=== PATIENT | female | born 1975 | race African-American/Black ===

== ENCOUNTER 2017-01-24 19:54 | Emergency (ER) | payer OTHER ==
[~2017-01-24] VITALS: Ht 162.6 cm; Wt 72.7 kg
[~2017-01-24 19:54] MED LIST: CARB200T6 PO; GABA-533 PO
[2017-01-24 20:04] VITALS: BP 130/90
[2017-01-24 20:31] LABS: BASOPHILS % (AUTO) 0.5 % (0.0-2.0); EOSINOPHILS % (AUTO) 2.8 % (1.0-6.0); HEMATOCRIT 38.4 % (36-46); HEMOGLOBIN 12.8 g/dL (12.0-16.0); LYMPHOCYTES # (AUTO) 2.3 K/uL (1.0-4.8); LYMPHOCYTES % (AUTO) 40.9 % (22.0-44.0); MEAN CORPUSCULAR HEMOGLOBIN 30.3 pg (26.0-34.0); MEAN CORPUSCULAR HGB CONC 33.3 G/dL (31.0-37.0); MEAN CORPUSCULAR VOLUME 91 fL (80-100); MONOCYTES # (AUTO) 0.5 K/uL (0.1-1.0); MONOCYTES % (AUTO) 9.4 % (2.0-9.0); NEUTROPHILS # (AUTO) 2.6 K/uL (1.8-7.7); NEUTROPHILS % (AUTO) 46.4 % (40.0-70.0); PLATELET COUNT (AUTO) 285 K/uL (150-450); RED BLOOD CELL COUNT(AUTO) 4.23 MIL/uL (4.00-5.20); RED CELL DISTRIBUTION WIDTH 14.3 % (11.5-14.5); WHITE BLOOD COUNT (AUTO) 5.7 K/uL (4.5-11.0)
[2017-01-24 21:09] LABS: APPEARANCE,URINE CLOUDY (CLEAR); GLUCOSE, URINE (UA) NEGATIVE (NEGATIVE); KETONES,URINE NEGATIVE (NEGATIVE); LEUKOCYTE ESTERASE ,URINE LARGE (NEGATIVE); OCCULT BLOOD,URINE NEGATIVE (NEGATIVE); PROTEIN,URINE NEGATIVE (NEGATIVE)
[2017-01-24 21:13] LABS: ADD UA MICROSCOPIC YES
[2017-01-24 21:23] LABS: RBC,URINE None Seen /HPF (0-2); SQUAMOUS EPITHELIAL CELL,UR Few /LPF (None Seen)
== END 2017-01-24 21:52 | disposition home or self-care (01) ==
LOC: EMS 20:00
DX: N39.0 Urinary tract infection, site not specified (principal)
CPT/HCPCS: 87086; 99284

== ENCOUNTER 2019-01-24 16:13 | Emergency (ER) | payer OTHER ==
[~2019-01-24] VITALS: Ht 162.6 cm; Wt 80.0 kg
[2019-01-24 17:40] VITALS: BP 132/88
[2019-01-24] MEDS ORDERED: SILVER SULFADIAZINE 1% 25 GM CREAM TP ONE (17:45)
[2019-01-24] MEDS ORDERED: IBUPROFEN 400 MG TABLET PO ONE (18:00)
== END 2019-01-24 19:07 | disposition home or self-care (01) ==
LOC: EMS 16:14
DX: T23.152A Burn of first degree of left palm, initial encounter (principal); T23.102A Burn of first degree of left hand, unspecified site, initial encounter; G35 Multiple sclerosis; T31.0 Burns involving less than 10% of body surface; X19.XXXA Contact with other heat and hot substances, initial encounter; Y93.89 Activity, other specified; Y92.69 Other specified industrial and construction area as the place of occurrence of the external cause; Y99.0 Civilian activity done for income or pay
CPT/HCPCS: 16000